=== PATIENT | female | born 1980 | race Caucasian/White ===

== ENCOUNTER 2016-09-24 17:04 | Inpatient (IN) ==
[2016-09-24] MEDS ORDERED: Ondansetron 4 MG/2 ML VIAL IVP PRN (20:43)
[2016-09-24] MEDS ORDERED: Acetaminophen 325 MG TABLET PO PRN (20:43)
[2016-09-24] MEDS ORDERED: Naloxone 0.4 MG/ML INJ IVP PRN (20:43)
[2016-09-24] MEDS: Ipratropium/Albuterol Neb 3 ML IH SCH (21:06)
--- NOTE | 2016-09-24 21:08 | Internal Med History&Physical ---
Date of Encounter: 09/24/16 Time of Encounter: 21:06 Assessment and Plan (1) Asthma exacerbation Current visit: Yes Status: Acute Patient has a history of asthma. She recently underwent sinus surgery one week ago. She has sudden onset cough with white mucus production, shortness of breath and wheezing without any fever or chills. Exam reveals patient in moderate to severe respiratory distress using accessory muscles of respiration and bilateral diffuse wheezing. Chest x-ray does not reveal any acute infiltrates. CT angiogram does not reveal an embolus. ABG reveals hypercapnia on 100% oxygen. Patient will be admitted to inpatient status due to asthma exacerbation. She has received breathing treatments and pulse dose steroids of 125 mg Solu- Medrol at [facility] emergency department. Will continue breathing treatments around the clock and high-dose steroids. We will continue her progress and taper steroids based on her response. She will be placed on BiPAP therapy to provide respite's support. If she does not respond to BiPAP therapy, she will require intubation and mechanical ventilation.The same has been discussed with the patient and family and they are agreeable to the same. Intravenous antibiotics. (2) Respiratory failure Current visit: Yes Status: Acute Due to asthma exacerbation. Management as above. BiPAP support and oxygen supplementation. Qualifiers: Chronicity: acute Respiratory failure complication: hypoxia and hypercapnia Qualified Code(s): J96.01 - Acute respiratory failure with hypoxia ; J96.02 - Acute respiratory failure with hypercapnia (3) Seizure disorder Current visit: Yes Status: Chronic Patient takes 200 mg of carbamazepine at bedtime. Continue the same. (4) Obesity (BMI 30-39.9) Current visit: No Status: Chronic Internal Medicine - H&P: HPI Chief complaint: Shortness of breath Admitted From: Hospital to Hospital Transfer Plans for Post Hospital Care: Home History of present illness: Ms. Thomas is a 35 year old female with a history of asthma presented to [facility] emergency department due to shortness of breath and cough that started last night. Patient states that she has a history of asthma but only uses albuterol very rarely. She does have a history of nasal polyps. She underwent surgery on her ethmoid, sphenoid and maxillary sinuses by ENT last week. She states that she has been doing fine over the past week. However, last night, she doubled sudden onset shortness of breath and cough productive of white colored sputum production. This was associated with wheezing. Her shortness of breath has been getting worse all through the day and the patient is current to short of breath. Hence, she presented to [facility] emergency department today. She was found to have asthma exacerbation and was given intravenous steroids and placed on BiPAP. The patient has been transferred for higher level of care and admission for her asthma exacerbation. The patient denies any fever or chills. She denies any nausea or vomiting, abdominal pain, diarrhea, sedation. She reports chest tightness and chest pain. She reports feeling lightheaded. She states that the cough is bothering her. She denies any urinary symptoms. She denies any swelling in her legs. She denies any recent weight changes. Past Med Surg Social Fam HX - Past Medical History Attestation: Yes The following information was validated with the patient. Source: patient, obtained from family Medical history: asthma, seizures, other Psychiatric history: no psych history - Past Surgical History Surgical History: other (Ethmoid, sphenoid and maxillary surgery with removal of the tissue from the sinuses) - Social History Smoking Status: Never smoker Smokeless Tobacco Status: No Alcohol use: none Drug use: none Current living situation: Home, With Family Activity Level: Independent ambulation Recent Out of Country Travel Within the Last 8 Weeks: No Exposure or Possible Exposure to Illness During Travel: No - Additional Family History Additional family history: Reviewed; not pertinent Internal Medicine - H&P: Meds Albuterol Sulfate [Ventolin Hfa] 2 puff IH Q4H PRN 09/18/16 [History] Amoxicillin Susp [Amoxil] 10 ml PO BID #200 bottle 09/18/16 [Rx] Cetirizine HCl [Zyrtec] 10 mg PO DAILY 09/18/16 [History] Fluticasone Propionate Nasal [Flonase] 2 spr NS DAILY PRN 09/18/16 [History] HYDROcodone/Acet 7.5/325 mg [[place] 7.5-325 mg] 1 tab PO Q4-6H PRN #40 tablet 09/29 [Rx] Montelukast [Singulair] 10 mg PO HS 09/18/16 [History] carBAMazepine [Tegretol] 200 mg PO HS 09/18/16 [History] Allergies No Known Allergies Allergy (Verified 09/24/16 13:44) All Systems PM: A 10-system review of systems was performed and is negative for pertinent findings except as documented above in the HPI. Review of systems: 10 systems have been reviewed and are negative except as mentioned in the history of present illness - Constitutional Vitals: Temp Pulse Resp BP Pulse Ox 98.4 F 107 24 145/98 100 09/24/16 20:20 09/24/16 20:20 09/24/16 20:20 09/24/16 20:20 09/24/16 20:20 Exam: Gen.: Lying in bed. Moderate to severe distress. Eyes: Pupils equal, round and reactive to light. Extraocular muscles intact. ENT: Moist mucous membranes. No oropharyngeal erythema or discharge. Crusted blood at bilateral nares Chest: Reduced breath sounds bilaterally. Diffuse wheezing. Using accessory muscles of respiration. CVS: First and second heart sounds present. No murmurs, rubs or gallops. Tachycardia present. Abdomen: Soft, nontender, obese. Bowel sounds present. No hepatosplenomegaly. Skin: No decubitus ulcers appreciated. MEDICAL RECORDS SECRETARY: No focal neuro deficits present. Psychiatric: Alert, awake and oriented to time, place and person. Lymphatic system: No lymphadenopathy appreciated Internal Med - H&P Results - Labs Labs: Labs from [facility] reviewed-white count 16,000. ABG reveals pH of 7.35, PCO2 52, PO2 107 on 100% BiPAP. Chemistry reveals mildly elevated glucose and mildly elevated creatinine kinase - EKG Data -: EKG Interpreted by Myself EKG shows normal: sinus rhythm, ST-T waves (ST depressions minimally and V4-6 ) Rate: tachycardia - Diagnostic Studies Chest x-ray Status: image reviewed by me (No acute infiltrates seen ) CT scan - chest Status: image reviewed by me (No acute PE or infiltrates seen)
[2016-09-24] MEDS ORDERED: CARBAMAZEPINE 100 MG PO SCH (21:15)
[2016-09-24] MEDS: Levofloxacin 750 MG/150 ML 750 MG/150 ML BAG IVPB SCH (21:51)
[2016-09-24] MEDS: *HR* Heparin 5,000 UNIT/ML VIAL SQ SCH (21:51)
[2016-09-25] MEDS: methylPREDNISolone 125 MG/2 ML VIAL IVP SCH ×4 (00:01→17:43)
[2016-09-25] MEDS: Ipratropium/Albuterol Neb 3 ML IH SCH ×7 (00:27→23:30)
[2016-09-25 05:04] LABS: Basophils % 0.1 %; Hematocrit 33.7 % (35.3-44.9); Immature Granulocytes % 0.6 % (0-4); Lymphocytes # 0.9 K/mcL (0.6-4.6); Lymphocytes % 8.1 %; Mean Corpuscular HGB Conc 32.6 g/dL (31.6-35.5); Mean Corpuscular Hemoglobin 29.7 pg (28.0-33.3); Mean Corpuscular Volume 91.1 fL (83.0-100.0); Mean Platelet Volume 9.7 fL (9.4-12.4); Monocytes # 0.2 K/mcL (0.0-1.3); Monocytes % 1.6 %; Neutrophils # 10.1 K/mcL (1.6-8.9); Platelet Count 348 K/mcL (140-400); Red Cell Distribution Width 15.8 % (11.5-14.5); Segmented Neutrophils % 89.6 %
[2016-09-25] MEDS: *HR* Heparin 5,000 UNIT/ML VIAL SQ SCH ×3 (05:08→21:41)
[2016-09-25 05:21] LABS: Alanine Aminotransferase 20 Units/L (0-55); Albumin 3.7 g/dL (3.5-5.0); Albumin/Globulin Ratio 0.9 (1.1-2.2); Alkaline Phosphatase 162 Units/L (38-126); Aspartate Amino Transferase 17 Units/L (5-34); BUN/Creatinine Ratio 13 (6-26); Bilirubin,Total 0.4 mg/dL (0.2-1.2); Blood Urea Nitrogen 10 mg/dL (7-20); Calcium 9.3 mg/dL (8.6-10.8); Carbon Dioxide 30 mEq/L (19-29); Chloride 106 mEq/L (98-109); Globulin 4.1 g/dL (2.4-3.5); Glucose 138 mg/dL (70-99); Osmolality,Calculated 295 (280-300); Potassium 3.8 mEq/L (3.5-4.5); Sodium 142 mEq/L (136-145); Total Protein 7.8 g/dL (6.0-8.3); eGFR For African Americans > 60 (> 60); eGFR For Non-African Americans > 60 (> 60)
--- NOTE | 2016-09-25 09:13 | Internal Med Progress Note ---
<Mikey Jimenez - Last Filed: 09/25/16 15:23> Date of Encounter: 09/25/16 Time of Encounter: 09:13 - Assessment and plan (1) Asthma exacerbation Current Visit: Yes Status: Acute Assessment and plan: ABG showed respiratory acidosis with elevated PCO2 and slightly elevated bicarbonate level, patient was put on BiPAP last night and this morning, patient 's shortness of breath has improved, continue DuoNeb around the clock, IV antibiotics, IV steroids and oxygen support. CTA of the chest was negative for PE. (2) MRSA (methicillin resistant staph aureus) culture positive Current Visit: Yes Status: Acute Assessment and plan: Right frontal sinus culture came back MRSA positive from nasal polyp surgery a week ago, since patient presented to the ER with acute exacerbation of asthma, will cover MRSA infection with vancomycin IV. (3) Hx of nasal polyp Current Visit: Yes Status: Acute Assessment and plan: Patient had a removal nasal polyp surgery a week ago by ENT doctor. Patient was having postnasal drip after the surgery. (4) Seizure disorder Current Visit: Yes Status: Chronic Assessment and plan: History of seizures, last one was more than 20 years ago, continue Tegretol. (5) Obesity (BMI 30-39.9) Current Visit: No Status: Chronic Assessment and plan: Diet and lifestyle modification. (6) DVT prophylaxis Current Visit: Yes Status: Acute Assessment and plan: Heparin subcutaneous 3 times a day. He - Subjective Interval history: Patient seen and examined. She states that shortness of breath is better than last night, pt used bipap all night last night and this AM, still has productive cough with white phlegm. Denies chest pain. - Constitutional Vitals: Temp Pulse Resp BP Pulse Ox 98.4 F 88 16 104/68 100 09/25/16 06:47 09/25/16 06:47 09/25/16 08:45 09/25/16 08:45 09/25/16 08:45 General appearance: Present: cooperative, A&O X 3, pleasant, no acute distress, answers questions appropriately - Respiratory Respiratory exam: Present: decreased breath sounds (Diffusedly bilateral), wheezes (Slightly at base bilateral ). Absent: rales, rhonchi - Cardiovascular Cardiovascular exam: Present: RRR, +S1, +S2. Absent: clicks, gallop, rubs, systolic murmur - GI/Abdominal GI/Abdominal exam: Present: normal bowel sounds, soft. Absent: distended, firm , guarding, rebound, rigid, tenderness - Extremities Exam Extremities exam: Present: warm, radial pulses palpable and symetrical. Absent : calf tenderness, pedal edema, tenderness - Neurological Exam Neurological exam: Present: alert, CN II-XII intact, oriented X3, strengths equal and symetr throughout. Absent: altered Internal Medicine: Result - Labs CBC & Chem 7: 09/25/16 04:30 09/25/16 04:30 Labs: Short CBC 09/25/16 Range/Units 04:30 WBC 11.3 H (4.3-11.1) K/mcL Hgb 11.0 L (11.5-15.4) g/dL Hct 33.7 L (35.3-44.9) % Plt Count 348 (140-400) K/mcL Neutrophils # 10.1 H (1.6-8.9) K/mcL BMP 09/25/16 04:30 Sodium 142 Potassium 3.8 Chloride 106 Carbon Dioxide 30 H BUN 10 Creatinine 0.76 Glucose 138 H Calcium 9.3 Cardiac Enzymes 09/24/16 09/25/16 Range/Units 21:31 04:30 Troponin I 0.02 0.01 (0-0.03) ng/mL Liver Function 09/25/16 Range/Units 04:30 Total Bilirubin 0.4 (0.2-1.2) mg/dL AST 17 (5-34) Units/L ALT 20 (0-55) Units/L Alkaline Phosphatase 162 H (38-126) Units/L Albumin 3.7 (3.5-5.0) g/dL Consult Discharge Plan - Plan Referrals: NO,PCP [Primary Care Provider] - <Rohit Oscar - Last Filed: 09/25/16 16:26> Date of Encounter: 09/25/16 - Assessment and plan (1) Respiratory failure Current Visit: Yes Status: Acute Qualifiers: Chronicity: acute Respiratory failure complication: hypoxia Qualified Code(s): J96.01 - Acute respiratory failure with hypoxia (2) Asthma exacerbation Current Visit: Yes Status: Acute (3) Acute bronchitis Current Visit: Yes Status: Suspected Qualifiers: Bronchitis organism: Haemophilus influenzae Qualified Code(s): J20.1 - Acute bronchitis due to Hemophilus influenzae (4) MRSA (methicillin resistant staph aureus) culture positive Current Visit: Yes Status: Acute (5) Seizure disorder Current Visit: Yes Status: Chronic (6) Obesity (BMI 30-39.9) Current Visit: No Status: Chronic - Constitutional Vitals: Temp Pulse Resp BP Pulse Ox 98.4 F 78 22 118/81 94 09/25/16 11:16 09/25/16 14:12 09/25/16 14:26 09/25/16 14:12 09/25/16 14:26 Internal Medicine: Result - Labs CBC & Chem 7: 09/25/16 04:30 09/25/16 04:30 Labs: Short CBC 09/25/16 Range/Units 04:30 WBC 11.3 H (4.3-11.1) K/mcL Hgb 11.0 L (11.5-15.4) g/dL Hct 33.7 L (35.3-44.9) % Plt Count 348 (140-400) K/mcL Neutrophils # 10.1 H (1.6-8.9) K/mcL BMP 09/25/16 04:30 Sodium 142 Potassium 3.8 Chloride 106 Carbon Dioxide 30 H BUN 10 Creatinine 0.76 Glucose 138 H Calcium 9.3 Cardiac Enzymes 09/24/16 09/25/16 Range/Units 21:31 04:30 Troponin I 0.02 0.01 (0-0.03) ng/mL Liver Function 09/25/16 Range/Units 04:30 Total Bilirubin 0.4 (0.2-1.2) mg/dL AST 17 (5-34) Units/L ALT 20 (0-55) Units/L Alkaline Phosphatase 162 H (38-126) Units/L Albumin 3.7 (3.5-5.0) g/dL - Attending Attestation I examined this patient and my medical decision-making was reviewed with the Resident Physician on 09/25/16. I agree with the documented findings, disposition and treatment plan as described except to the extent set forth below. Ms. Thomas is currently admitted for acute exac asthma with hypoxia. She is high risk due to potential for worsening respiratory status. Ms. Thomas was on bipap most of the night. She is still on oxygen and has some hypoxia when removed. She feels she is wheezing less. No fever. No GI issues. Parents are at bedside. Exam Alert. Comfortable Heart reg - not tachy now Lungs clear anteriorly and laterally. No edema I/P 1. Hypoxia 2. Asthma 3. MRSA in sinus 4. Recent sinus surgery Further diagnoses and plan as above
[2016-09-25] MEDS ORDERED: Vancomycin (wt based) 1,000 MG VIAL IVPB SCH (12:00)
[2016-09-25] MEDS: Vancomycin 1,500 MG in D5% in Water 250 ML IVPB SCH (13:59)
[2016-09-25] MEDS: CARBAMAZEPINE 100 MG PO SCH (21:38)
[2016-09-25] MEDS: Levofloxacin 750 MG/150 ML 750 MG/150 ML BAG IVPB SCH (21:40)
[2016-09-26] MEDS: methylPREDNISolone 125 MG/2 ML VIAL IVP SCH ×2 (01:24→07:00)
[2016-09-26] MEDS: Vancomycin 1,500 MG in D5% in Water 250 ML IVPB SCH ×2 (01:25→12:42)
[2016-09-26] MEDS: Ipratropium/Albuterol Neb 3 ML IH SCH ×6 (04:25→23:59)
[2016-09-26 04:54] LABS: Basophils % 0.1 %; Hemoglobin 10.2 g/dL (11.5-15.4); Immature Granulocytes % 0.8 % (0-4); Lymphocytes # 0.9 K/mcL (0.6-4.6); Lymphocytes % 12.5 %; Mean Corpuscular HGB Conc 31.9 g/dL (31.6-35.5); Mean Corpuscular Hemoglobin 28.7 pg (28.0-33.3); Mean Corpuscular Volume 89.9 fL (83.0-100.0); Mean Platelet Volume 9.8 fL (9.4-12.4); Monocytes # 0.4 K/mcL (0.0-1.3); Monocytes % 5.1 %; Platelet Count 322 K/mcL (140-400); Red Blood Count 3.56 M/mcL (3.82-4.97); Red Cell Distribution Width 15.4 % (11.5-14.5); Segmented Neutrophils % 81.5 %
[2016-09-26] MEDS: *HR* Heparin 5,000 UNIT/ML VIAL SQ SCH ×3 (07:00→22:29)
--- NOTE | 2016-09-26 10:07 | Internal Med Progress Note ---
<Mikey Jimenez - Last Filed: 09/26/16 10:04> Date of Encounter: 09/26/16 Time of Encounter: 10:04 - Assessment and plan (1) Asthma exacerbation Current Visit: Yes Status: Acute Assessment and plan: Clinically patient's breathing improved compared to yesterday, ABG showed respiratory acidosis with elevated PCO2 and slightly elevated bicarbonate level , patient is currently on 3 L oxygen mask satting 96 to 98%, will decrease IV steroid dosage, continue DuoNeb around the clock, IV antibiotics, and oxygen support. Patient will have 6 minutes home oxygen qualification test today. CTA of the chest was negative for PE. (2) MRSA (methicillin resistant staph aureus) culture positive Current Visit: Yes Status: Acute Assessment and plan: Right frontal sinus culture came back MRSA positive from nasal polyp surgery a week ago, since patient presented to the ER with acute exacerbation of asthma, will cover MRSA infection with vancomycin IV. (3) Hx of nasal polyp Current Visit: Yes Status: Acute Assessment and plan: Patient had a removal nasal polyp surgery a week ago by ENT doctor. Patient was having postnasal drip after the surgery. Patient has a scheduled follow-up appointment tomorrow. (4) Seizure disorder Current Visit: Yes Status: Chronic Assessment and plan: History of seizures, last one was more than 20 years ago, continue Tegretol. (5) Obesity (BMI 30-39.9) Current Visit: No Status: Chronic Assessment and plan: Diet and lifestyle modification. (6) DVT prophylaxis Current Visit: Yes Status: Acute Assessment and plan: Heparin subcutaneous 3 times a day. - Subjective Interval history: Patient seen and examined. She states that shortness of breath is better than yesterday, productive cough is minimum, she states that her breathing is almost back to her baseline. - Constitutional Vitals: Temp Pulse Resp BP Pulse Ox 97.6 F 78 16 119/54 98 09/26/16 06:44 09/26/16 06:44 09/26/16 07:21 09/26/16 06:44 09/26/16 09:00 General appearance: Present: cooperative, A&O X 3, pleasant, no acute distress, answers questions appropriately - Respiratory Respiratory exam: Present: wheezes (Slightly diffusely bilateral). Absent: accessory muscle use, chest wall tenderness, rales, rhonchi - Cardiovascular Cardiovascular exam: Present: RRR, +S1, +S2. Absent: clicks, gallop, rubs, systolic murmur - GI/Abdominal GI/Abdominal exam: Present: normal bowel sounds, soft. Absent: distended, firm , guarding, rebound, rigid, tenderness - Extremities Exam Extremities exam: Present: normal inspection, warm, radial pulses palpable and symetrical. Absent: calf tenderness, pedal edema, tenderness Internal Medicine: Result - Labs CBC & Chem 7: 09/26/16 04:19 09/25/16 04:30 Labs: Short CBC 09/26/16 Range/Units 04:19 WBC 7.4 (4.3-11.1) K/mcL Hgb 10.2 L (11.5-15.4) g/dL Hct 32.0 L (35.3-44.9) % Plt Count 322 (140-400) K/mcL Neutrophils # 6.0 (1.6-8.9) K/mcL Consult Discharge Plan - Plan Referrals: NO,PCP [Primary Care Provider] - <Rohit Oscar - Last Filed: 09/26/16 13:30> Date of Encounter: 09/26/16 - Assessment and plan (1) Respiratory failure Current Visit: Yes Status: Acute Assessment and plan: Weaning oxygen as able. Qualifiers: Chronicity: acute Respiratory failure complication: hypoxia Qualified Code(s): J96.01 - Acute respiratory failure with hypoxia (2) Asthma exacerbation Current Visit: Yes Status: Acute (3) Acute bronchitis Current Visit: Yes Status: Suspected Assessment and plan: Sinus surgery culture positive for H flu and MRSA. On IV abx. Qualifiers: Bronchitis organism: Haemophilus influenzae Qualified Code(s): J20.1 - Acute bronchitis due to Hemophilus influenzae (4) MRSA (methicillin resistant staph aureus) culture positive Current Visit: Yes Status: Acute (5) Seizure disorder Current Visit: Yes Status: Chronic (6) Obesity (BMI 30-39.9) Current Visit: No Status: Chronic - Constitutional Vitals: Temp Pulse Resp BP Pulse Ox 98.4 F 90 18 125/71 96 09/26/16 11:28 09/26/16 11:28 09/26/16 11:28 09/26/16 11:28 09/26/16 11:28 Internal Medicine: Result - Labs CBC & Chem 7: 09/26/16 04:19 09/25/16 04:30 Labs: Short CBC 09/26/16 Range/Units 04:19 WBC 7.4 (4.3-11.1) K/mcL Hgb 10.2 L (11.5-15.4) g/dL Hct 32.0 L (35.3-44.9) % Plt Count 322 (140-400) K/mcL Neutrophils # 6.0 (1.6-8.9) K/mcL - Attending Attestation I examined this patient and my medical decision-making was reviewed with the Resident Physician on 09/26/16. I agree with the documented findings, disposition and treatment plan as described except to the extent set forth below. Ms. Thomas is currently admitted for hypoxia and asthma exacerbation. She remains high risk due to potential for worsening respiratory status. Ms. Thomas feels she is breathing better today. She is still on oxygen but is tapering down some. No pain. No issues with nose. Concerned about her follow up appt tomorrow. No fever or chills now. Has not required bipap again. Exam Alert. Comfortable. Heart reg - not tachy Lungs diminished. No wheeze at this time. Abd soft and nontender. Labs reviewed I/P 1. Hypoxia 2. Asthma exacerbation. Further diagnoses and plan as above. Continue current abx. Wean oxygen and steroids. Anticipate d/c tomorrow AM in time for ENT appt.
[2016-09-26] MEDS ORDERED: Aminoglycoside Consult 1 EACH MC ONE (10:44)
[2016-09-26] MEDS: MethylPREDNISolone 40 MG/ML VIAL IVP SCH ×2 (12:43→22:29)
[2016-09-26] MEDS: CARBAMAZEPINE 100 MG PO SCH (22:29)
[2016-09-26] MEDS: Levofloxacin 750 MG/150 ML 750 MG/150 ML BAG IVPB SCH (22:29)
[2016-09-27] MEDS: Vancomycin 1,500 MG in D5% in Water 250 ML IVPB SCH (01:00)
[2016-09-27] MEDS: Ipratropium/Albuterol Neb 3 ML IH SCH ×4 (03:53→07:48)
[2016-09-27] MEDS: MethylPREDNISolone 40 MG/ML VIAL IVP SCH (04:47)
[2016-09-27] MEDS: *HR* Heparin 5,000 UNIT/ML VIAL SQ SCH (04:47)
[2016-09-27 06:48] VITALS: BP 113/68
--- NOTE | 2016-09-27 09:38 | Discharge Summary ---
<Mikey Jimenez - Last Filed: 09/27/16 11:57> Date of Encounter: 09/27/16 Time of Encounter: 09:33 - Discharge Diagnosis (1) Asthma exacerbation Priority: Primary Status: Acute (2) MRSA (methicillin resistant staph aureus) culture positive Priority: Secondary Status: Acute (3) Hx of nasal polyp Priority: Secondary Status: Acute (4) Seizure disorder Priority: Secondary Status: Chronic (5) Obesity (BMI 30-39.9) Priority: Secondary Status: Chronic (6) DVT prophylaxis Priority: Secondary Status: Acute - Discharge Medications Prescriptions: Doxycycline 100 mg PO BID 4 Days predniSONE [PredniSONE] 10 mg PO DAILY #40 tablet Home Medications: Albuterol Sulfate [Ventolin Hfa] 2 puff IH Q4H PRN 09/18/16 [History] Cetirizine HCl [Zyrtec] 10 mg PO DAILY 09/18/16 [History] Fluticasone Propionate Nasal [Flonase] 2 spr NS DAILY PRN 09/18/16 [History] HYDROcodone/Acet 7.5/325 mg [[place] 7.5-325 mg] 1 tab PO Q4-6H PRN #40 tablet 09/29 [Rx] Montelukast [Singulair] 10 mg PO HS 09/18/16 [History] carBAMazepine [CarBAMazepine] 200 mg PO HS 09/24/16 [History] Doxycycline 100 mg PO BID 4 Days 09/27/16 [Rx] predniSONE [PredniSONE] 10 mg PO DAILY #40 tablet 09/27/16 [Rx] Allergies/Adverse Reactions: Allergies No Known Allergies Allergy (Verified 09/24/16 13:44) Procedures/tests Complete & Pending: Procedures Performed prior 72 hours Category Date Time Status EV echocardiogram Routine Y 09/25/16 21:24 Completed Date of admission: 09/24/16 22:40 Primary care physician: PCP NO Discharging clinician: Mikey Jimenez Anticipated date of discharge: 09/27/16 - Patient Status Disposition: Home, Self-Care Condition: Good Functional capacity at discharge: uses cane/walker (fall precaution) Overall status at discharge: patient is progressing back to baseline - Discharge Instructions Instructions: Doxycycline (By mouth), Prednisone (By mouth), Asthma (DC) Follow Up With: Alison Cruz, TEAM COORDINATOR [Advanced Practice Nurse] - 10/08/16 12:00 pm - Diet and Activity Activity: resume usual activities as tolerated Diet: low fat, low cholesterol Hospital course: Ms. Thomas is a 35 year old female with a history of asthma who presented to the ER due to shortness of breath and productive cough, patient was admitted to the hospital for acute exacerbation of asthma, she has a history of nasal polyps and she has a nasal polyp surgery week ago and its culture came back positive for MRSA. During this hospital stay patient received IV steroid, IV antibiotics of Levaquin and vancomycin, DuoNeb [id number] and oxygen support, initially she was put on BiPAP for respiratory acidosis, CTA of the chest was negative for pulmonary embolism, patient's respiratory status significantly improved and on the date of the discharge patient is breathing went back to her baseline, and patient has a follow-up appointment today with ENT doctor therefore patient will be discharged to home in stable condition with by mouth steroid taper, antibiotic of doxycycline to treat MRSA infection, and patient will closely follow up with her primary care doctor as outpatient. - Time Spent with Patient Total time spent providing and/or coordinating discharge services: - Constitutional Vitals: Temp Pulse Resp BP Pulse Ox 97.9 F 69 16 113/68 96 09/27/16 06:37 09/27/16 06:37 09/27/16 07:48 09/27/16 06:37 09/27/16 07:48 General appearance: Present: cooperative, A&O X 3, pleasant, no acute distress, answers questions appropriately - Head Head exam: Present: atraumatic, normocephalic - Eye Eye exam: Present: PERRL, conjuntiva pink, sclera anicteric Pupils: Present: PERRL - Neck Neck exam general surgery: Present: supple, trachea midline. Absent: lymphadenopathy - Respiratory Respiratory exam: Present: decreased breath sounds (Mildly Diffusely bilateral) . Absent: accessory muscle use, rales, rhonchi, wheezes - Cardiovascular Cardiovascular exam: Present: RRR, +S1, +S2. Absent: diastolic murmur, gallop, rubs, systolic murmur - GI/Abdominal GI/Abdominal exam: Present: normal bowel sounds, soft, no peritoneal signs. Absent: distended, tenderness - Extremities Exam Extremities exam: Present: warm, radial pulses palpable and symetrical. Absent : calf tenderness, cyanotic, pedal edema - Neurological Exam Neurological exam: Present: CN II-XII intact, oriented X3, no focal deficits. Absent: pronater drift, facial droop, speech deficit - Skin Skin exam: Present: dry, intact <Marc Pinon - Last Filed: 09/27/16 18:14> Date of Encounter: 09/27/16 Procedures/tests Complete & Pending: Procedures Performed prior 72 hours Category Date Time Status EV echocardiogram Routine Y 09/25/16 21:24 Completed Date of admission: 09/24/16 22:40 Primary care physician: PCP NO Hospital course: Ms. Thomas is a 35 year old female - Time Spent with Patient Total time spent providing and/or coordinating discharge services: - Constitutional Vitals: Temp Pulse Resp BP Pulse Ox 97.9 F 69 16 113/68 96 09/27/16 06:37 09/27/16 06:37 09/27/16 07:48 09/27/16 06:37 09/27/16 07:48 - Attending Attestation I saw and examined pt. I discussed the management plan with resident Dr Jensen, Agree with the document.
== END 2016-09-27 10:45 | disposition home or self-care (01) | DRG 141 ==
LOC: 2NENU → SUATTDRO 22:40
PROVIDERS: ADMIT Internal Medicine Sleep Medicine; ATTEND Internal Medicine

== ENCOUNTER 2016-12-25 10:07 | Inpatient (IN) ==
[2016-12-25] MEDS ORDERED: Ipratropium/Albuterol Neb 3 ML ONE (10:23)
[2016-12-25] MEDS ORDERED: methylPREDNISolone 125 MG/2 ML VIAL IVP ONE (10:24)
[2016-12-25] MEDS ORDERED: Ipratropium/Albuterol Neb 3 ML IH ONE (10:24)
[2016-12-25] MEDS ORDERED: 0.9 % Sodium Chloride 500 ML IVC ONE (10:26)
--- NOTE | 2016-12-25 10:30 | Emergency Department Note ---
Disposition Clinical Impression: Respiratory distress, Hypoxia Asthma with exacerbation Qualifiers: Asthma severity: unspecified severity Qualified Code(s): J45.901 - Unspecified asthma with (acute) exacerbation Disposition: Admitted As Inpatient SOB HPI - General Chief Complaint: ED Shortness of Breath/Dyspnea Stated Complaint: SANJIV Source: patient, EMS Mode of arrival: EMS Limitations: no limitations Nursing Notes Reviewed: Yes Vital Signs Reviewed: Yes - History of Present Illness Patient is a 36-year-old white female with a history of asthma who presents to the emergency department by EMS in respiratory distress. Patient arrived with room air sats at 82% with increased work of breathing and audible wheezing and tachypnea. Patient's despite shortness of breath has good mental status and able to answer questions appropriately although with conversational dyspnea. Patient's tachycardic sinus as well. Patient reports that she has had gradually worsening shortness of breath over the past 36 hours which began as as mild cold symptoms nasal congestion occasional nonproductive cough and then woke up this morning feeling very short of breath. Patient with increased work of breathing and wheezing. Patient complains of chest tightness throughout her anterior chest. She has had no production of cough and no posttussive emesis. No known ill contacts. 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 Patient with is between extra wheezing throughout bilaterally with good air movement, no facial swelling or edema, posterior pharynx without erythema exudates or edema with a midline uvula. Floor the mouth appears unremarkable and she is managing secretions well. We will initiate triple breathing treatments and IV steroids and closely monitored. - Related Data Home Medications Medication Instructions Recorded Confirmed Albuterol Sulfate [Ventolin Hfa] 2 puff IH Q4H PRN 09/18/16 12/25/16 Cetirizine HCl [Zyrtec] 10 mg PO DAILY 09/18/16 12/25/16 Fluticasone Propionate Nasal 2 spr NS DAILY PRN 09/18/16 12/25/16 [Flonase] Montelukast [Singulair] 10 mg PO HS 09/18/16 12/25/16 carBAMazepine [CarBAMazepine] 200 mg PO HS 09/24/16 12/25/16 Budesonide Neb [Pulmicort Neb] 0.5 mg PO Q6H PRN 12/25/16 12/25/16 Allergies Allergy/AdvReac Type Severity Reaction Status Date / Time No Known Allergies Allergy Verified 12/25/16 10:24 Constitutional: Denies: fever, chills ENT ED: Reports: congestion. Denies: ear pain, throat pain, dental pain, hearing loss, dysphagia Cardiovascular: Reports: chest pain. Denies: palpitations, dyspnea on exertion , orthopnea, edema, syncope, paroxysmal nocturnal dyspnea Respiratory: Reports: cough, dyspnea, wheezes. Denies: hemoptysis, stridor, sputum production Gastrointestinal: Denies: abdominal pain, nausea, vomiting Genitourinary: Denies: urgency, dysuria, frequency Musculoskeletal: Denies: back pain, neck pain Integumentary: Denies: rash Psychiatric: Denies: anxiety, depression Past Medical History - Past Medical History Medical history: Reports: asthma, seizures, other Surgical history: Reports: other (Ethmoid, sphenoid and maxillary surgery with removal of the tissue from the sinuses) Psychiatric history: Reports: no psych history CHOPPER FEEDER history: Reports: no CHOPPER FEEDER history - Social History Smoking Status: Never smoker Smokeless Tobacco Status: No Alcohol use: Reports: none Drug use: Reports: none Physical Exam - General Limitations: no limitations General appearance: alert, in no apparent distress, in distress, other (Patient found sitting on the edge of the cot on arrival to the ED with increased work of breathing, tachypnea, audible wheezing at bedside and hypoxic on arrival. He should with conversational dyspnea upon answering questions.) - Head Head exam: atraumatic, normocephalic, normal inspection - Eye Eye exam: Present: normal appearance, PERRL, EOMI - ENT ENT exam: normal exam, normal oropharynx, mucous membranes moist, TM's normal bilaterally, other (No pharyngeal erythema or exudates are noted uvula midline, no stridor, floor the mouth unremarkable with good dentition) - Neck Neck exam: Present: normal inspection, full ROM, trachea midline. Absent: lymphadenopathy - Chest Chest inspection: Present: normal inspection, symmetric chest wall rise. Absent : tenderness - Respiratory Respiratory exam: Present: respiratory distress, wheezes, accessory muscle use - Cardiovascular Cardiovascular exam: Present: normal rhythm, tachycardia, normal heart sounds - Abdominal Exam Abdominal exam: Present: soft, Non-Tender, normal bowel sounds - Extremities Exam Extremities exam: Present: normal inspection, full ROM. Absent: tenderness, pedal edema, calf tenderness - Back Exam Back exam: Present: normal inspection, full ROM. Absent: tenderness, CVA tenderness (R), CVA tenderness (L) - Neurological Exam Neurological exam: Present: alert, oriented X3, CN II-XII intact, reflexes normal. Absent: motor sensory deficit - Psychiatric Psychiatric exam: Present: normal affect, anxious - Skin Skin exam: Present: warm, dry, intact, normal color. Absent: diaphoresis, pallor Course Course Narrative: Upon arrival patient had an IV saline lock administered with steroids given IV, and triple DuoNeb initiated. Supplemental oxygen was turned up to 6 L nasal cannula on patient's arrival and will be titrated as appropriate. We will continue to monitor patient closely as she arrived in respiratory distress with hypoxia. - Reevaluation(s) Reevaluation #1: Patient with moderate improvement following aerosols and steroids. We were able to titrate nasal cannula oxygen down to 3 L/m. Patient's heart rate improving with IV fluids. Concerned with patient's initial presentation of tachycardia as well as her respiratory distress so we will proceed with CTA to rule out PE, as chest x-ray is unremarkable. Patient remains with hemodynamic improvement and respiratory improvement at this time. Reevaluation #2: Spoke with patient and now parents are at bedside in regards to lab and imaging results. CTA is unremarkable for any PE and no consolidation or infiltrate. Patient's course appears consistent with an acute exacerbation of asthma. Patient remains with diffuse wheezing throughout and still requiring supplement oxygen to maintain her O2 sats although remains at 3 L/m nasal cannula at this time. We will admit the patient for ongoing aerosols and pulmonary management. We will not initiate antibiotics at this time as patient's imaging has been unremarkable for any pulmonary infections. Patient's heart rate significantly improved and is actually in a normal sinus rhythm at this time. Vital signs stable. Vital Signs Temperature 99.1 F 12/25/16 10:09 Pulse Rate 127 12/25/16 10:09 Respiratory Rate 28 12/25/16 10:09 Blood Pressure 130/94 12/25/16 10:09 O2 Sat by Pulse Oximetry 82 12/25/16 10:09 Temperature 99.1 F 12/25/16 15:38 Pulse Rate 102 12/25/16 16:00 Respiratory Rate 20 12/25/16 16:47 Blood Pressure 108/75 12/25/16 15:38 O2 Sat by Pulse Oximetry 89 12/25/16 16:47 Oxygen Delivery Oxygen Delivery Nasal Cannula Shortness of Breath/Dyspnea - Medical Records Medical records reviewed: Yes I reviewed the patient's medical records. - Lab Data Lab results reviewed: Yes I reviewed the patient's lab results. Result diagrams: 12/25/16 10:35 12/25/16 10:35 Lab Results 12/25/16 12/25/16 12/25/16 Range/Units 10:25 10:25 10:35 WBC 15.8 H D (4.3-11.1) K/mcL RBC 4.62 (3.82-4.97) M/mcL Hgb 12.2 (11.5-15.4) g/dL Hct 39.4 (35.3-44.9) % MCV 85.3 (83.0-100.0) fL MCH 26.4 L (28.0-33.3) pg MCHC 31.0 L (31.6-35.5) g/dL RDW 15.0 H (11.5-14.5) % Plt Count 385 (140-400) K/mcL MPV 9.5 (9.4-12.4) fL Immature Gran % 0.7 (0-4) % Seg Neutrophils % 87.8 % Lymphocytes % 7.6 % Monocytes % 3.7 % Eosinophils % 0.0 % Basophils % 0.2 % Neutrophils # 13.9 H (1.6-8.9) K/mcL Lymphocytes # 1.2 (0.6-4.6) K/mcL Monocytes # 0.6 (0.0-1.3) K/mcL Eosinophils # 0.0 (0.0-0.6) K/mcL Basophils # 0.0 (0.0-0.2) K/mcL Sodium (136-145) mEq/L Potassium (3.5-4.5) mEq/L Chloride (98-109) mEq/L Carbon Dioxide (19-29) mEq/L BUN (7-20) mg/dL Creatinine (0.57-1.11) mg/dL Est GFR ( Amer) (> 60) Est GFR (Non-Af Amer) (> 60) BUN/Creatinine Ratio (6-26) Glucose (70-99) mg/dL Calculated Osmolality (280-300) Lactic Acid (0.5-2.2) mmol/L Calcium (8.6-10.8) mg/dL Total Bilirubin (0.2-1.2) mg/dL Direct Bilirubin (0.0-0.5) mg/dL Indirect Bilirubin (0.0-1.2) mg/dL AST (5-34) Units/L ALT (0-55) Units/L Alkaline Phosphatase (38-126) Units/L Troponin I (0-0.03) ng/mL B-Natriuretic Peptide (0-100) pg/mL Serum Total Protein (6.0-8.3) g/dL Albumin (3.5-5.0) g/dL Globulin (2.4-3.5) g/dL Albumin/Globulin Ratio (1.1-2.2) Urine Color Yellow (Yellow) Urine Clarity Turbid A (Clear) Urine pH 5.0 (5.0-8.0) pH Units Ur Specific [place] > 1.030 H (1.010-1.025) Urine Protein Trace (Neg-Trace) mg/dL Urine Glucose (UA) Normal (Normal) mg/dL Urine Ketones Negative (Negative) mg/dL Urine Blood Small H (Negative) Urine Nitrite Negative (Negative) Urine Bilirubin Negative (Negative) Urine Urobilinogen Normal (Normal) mg/dL Ur Leukocyte Esterase Negative (Negative) Urine Microscopic RBC 5-15 H (0-3) per hpf Urine Microscopic WBC 0-3 (0-3) per hpf Ur Squamous Epith Cells Many H (None-Few) per lpf Urine Bacteria Few (None-Few) per hpf Hyaline Casts None Seen (None-Few) per lpf Ur Culture Indicated? NO (NO) Urine Test Negative (Negative) 12/25/16 12/25/16 12/25/16 Range/Units 10:35 10:35 10:35 WBC (4.3-11.1) K/mcL RBC (3.82-4.97) M/mcL Hgb (11.5-15.4) g/dL Hct (35.3-44.9) % MCV (83.0-100.0) fL MCH (28.0-33.3) pg MCHC (31.6-35.5) g/dL RDW (11.5-14.5) % Plt Count (140-400) K/mcL MPV (9.4-12.4) fL Immature Gran % (0-4) % Seg Neutrophils % % Lymphocytes % % Monocytes % % Eosinophils % % Basophils % % Neutrophils # (1.6-8.9) K/mcL Lymphocytes # (0.6-4.6) K/mcL Monocytes # (0.0-1.3) K/mcL Eosinophils # (0.0-0.6) K/mcL Basophils # (0.0-0.2) K/mcL Sodium 140 (136-145) mEq/L Potassium 4.2 (3.5-4.5) mEq/L Chloride 103 (98-109) mEq/L Carbon Dioxide 28 (19-29) mEq/L BUN 14 (7-20) mg/dL Creatinine 0.77 (0.57-1.11) mg/dL Est GFR ( Amer) > 60 (> 60) Est GFR (Non-Af Amer) > 60 (> 60) BUN/Creatinine Ratio 18 (6-26) Glucose 126 H (70-99) mg/dL Calculated Osmolality 292 (280-300) Lactic Acid 1.7 (0.5-2.2) mmol/L Calcium 9.4 (8.6-10.8) mg/dL Total Bilirubin 0.2 (0.2-1.2) mg/dL Direct Bilirubin 0.1 (0.0-0.5) mg/dL Indirect Bilirubin 0.1 (0.0-1.2) mg/dL AST 20 (5-34) Units/L ALT 20 (0-55) Units/L Alkaline Phosphatase 267 H (38-126) Units/L Troponin I 0.03 (0-0.03) ng/mL B-Natriuretic Peptide (0-100) pg/mL Serum Total Protein 8.8 H (6.0-8.3) g/dL Albumin 3.6 (3.5-5.0) g/dL Globulin 5.2 H (2.4-3.5) g/dL Albumin/Globulin Ratio 0.7 L (1.1-2.2) Urine Color (Yellow) Urine Clarity (Clear) Urine pH (5.0-8.0) pH Units Ur Specific [place] (1.010-1.025) Urine Protein (Neg-Trace) mg/dL Urine Glucose (UA) (Normal) mg/dL Urine Ketones (Negative) mg/dL Urine Blood (Negative) Urine Nitrite (Negative) Urine Bilirubin (Negative) Urine Urobilinogen (Normal) mg/dL Ur Leukocyte Esterase (Negative) Urine Microscopic RBC (0-3) per hpf Urine Microscopic WBC (0-3) per hpf Ur Squamous Epith Cells (None-Few) per lpf Urine Bacteria (None-Few) per hpf Hyaline Casts (None-Few) per lpf Ur Culture Indicated? (NO) Urine Test (Negative) 12/25/16 12/25/16 Range/Units 10:35 11:33 WBC (4.3-11.1) K/mcL RBC (3.82-4.97) M/mcL Hgb (11.5-15.4) g/dL Hct (35.3-44.9) % MCV (83.0-100.0) fL MCH (28.0-33.3) pg MCHC (31.6-35.5) g/dL RDW (11.5-14.5) % Plt Count (140-400) K/mcL MPV (9.4-12.4) fL Immature Gran % (0-4) % Seg Neutrophils % % Lymphocytes % % Monocytes % % Eosinophils % % Basophils % % Neutrophils # (1.6-8.9) K/mcL Lymphocytes # (0.6-4.6) K/mcL Monocytes # (0.0-1.3) K/mcL Eosinophils # (0.0-0.6) K/mcL Basophils # (0.0-0.2) K/mcL Sodium (136-145) mEq/L Potassium (3.5-4.5) mEq/L Chloride (98-109) mEq/L Carbon Dioxide (19-29) mEq/L BUN (7-20) mg/dL Creatinine (0.57-1.11) mg/dL Est GFR ( Amer) (> 60) Est GFR (Non-Af Amer) (> 60) BUN/Creatinine Ratio (6-26) Glucose (70-99) mg/dL Calculated Osmolality (280-300) Lactic Acid 3.1 H (0.5-2.2) mmol/L Calcium (8.6-10.8) mg/dL Total Bilirubin (0.2-1.2) mg/dL Direct Bilirubin (0.0-0.5) mg/dL Indirect Bilirubin (0.0-1.2) mg/dL AST (5-34) Units/L ALT (0-55) Units/L Alkaline Phosphatase (38-126) Units/L Troponin I (0-0.03) ng/mL B-Natriuretic Peptide < 10 (0-100) pg/mL Serum Total Protein (6.0-8.3) g/dL Albumin (3.5-5.0) g/dL Globulin (2.4-3.5) g/dL Albumin/Globulin Ratio (1.1-2.2) Urine Color (Yellow) Urine Clarity (Clear) Urine pH (5.0-8.0) pH Units Ur Specific [place] (1.010-1.025) Urine Protein (Neg-Trace) mg/dL Urine Glucose (UA) (Normal) mg/dL Urine Ketones (Negative) mg/dL Urine Blood (Negative) Urine Nitrite (Negative) Urine Bilirubin (Negative) Urine Urobilinogen (Normal) mg/dL Ur Leukocyte Esterase (Negative) Urine Microscopic RBC (0-3) per hpf Urine Microscopic WBC (0-3) per hpf Ur Squamous Epith Cells (None-Few) per lpf Urine Bacteria (None-Few) per hpf Hyaline Casts (None-Few) per lpf Ur Culture Indicated? (NO) Urine Test (Negative) - Radiology Data Radiology results reviewed: Yes I reviewed the patient's radiology results. Chest X-Ray 12/25/16 10:24 IMPRESSION: No acute process. D/ / David Morgan MD / David Morgan MD Interpreting Provider: David Morgan MD Chest CTA 12/25/16 11:06 IMPRESSION: No evidence of pulmonary embolism or acute pulmonary abnormality. D/ / David Morgan MD / David Morgan MD Interpreting Provider: David Morgan MD - EKG Data EKG attestation: Yes I reviewed and interpreted this EKG. EKG results narrative: Patient's EKG was interpreted by myself without the benefit of formal cardiology interpretation showing a sinus tachycardia at [address] or T wave change. This was compared to prior EKG and shows no significant changes from 09/24/2016. EKG shows normal: Reports: sinus rhythm Rate: Reports: tachycardia Rhythm: Reports: NSR Interpretation: Reports: nonspecific ST-T wave changes Critical Care Time Critical Care Time: Yes Total Critical Care Time: 60 Attestation: The high probability of a clinically significant, sudden or life threatening deterioration of the [resp] system(s) required my full and direct attention, intervention and personal management. The aggregate critical care time was [60] minutes. This time is in addition to time spent performing reported procedures but includes the following: [x] Data Review and interpretation [x] Patient assessment and monitoring of vital signs [x] Documentation [x] Medication orders and management S.B.A.R. - S.B.ARadhaRRadha Situation: Demographics Background: Presenting Complaint, Relevant PMH, Meds, & Allergies Assessment: Vital Signs, Course and respsone to treatment, Exam Concerns Recommendation: Recommendation based on pending studies, treatments, or consults S.B.A.RRadha Report Given to: Dr. Troy Rodríguez Repor Time: 13:29 Attestation Statement - Attestation Attestation: I persoanlly cared for this pt independently without assistance from the residents.
[2016-12-25 10:42] LABS: Bilirubin,Urine Negative (Negative); Blood,Urine Small (Negative); Clarity,Urine Turbid (Clear); Color,Urine Yellow (Yellow); Glucose,Urine (UA) Normal (Normal); Ketones,Urine Negative (Negative); Leukocyte Esterase,Urine Negative (Negative); Nitrite,Urine Negative (Negative); Protein,Urine Trace mg/dL (Neg-Trace); Specific Gravity,Urine > 1.030 (1.010-1.025); Urobilinogen,Urine Normal (Normal)
[2016-12-25 10:44] LABS: Bacteria,Urine Few per hpf (None-Few); Hyaline Casts,Urine None Seen per lpf (None-Few); Squamous Epithelial Cell,Urine Many per lpf (None-Few); WBC,Urine 0-3 per hpf (0-3)
[2016-12-25 10:48] LABS: Basophils % 0.2 %; Hematocrit 39.4 % (35.3-44.9); Hemoglobin 12.2 g/dL (11.5-15.4); Immature Granulocytes % 0.7 % (0-4); Lymphocytes # 1.2 K/mcL (0.6-4.6); Lymphocytes % 7.6 %; Mean Corpuscular Hemoglobin 26.4 pg (28.0-33.3); Mean Corpuscular Volume 85.3 fL (83.0-100.0); Mean Platelet Volume 9.5 fL (9.4-12.4); Monocytes # 0.6 K/mcL (0.0-1.3); Monocytes % 3.7 %; Neutrophils # 13.9 K/mcL (1.6-8.9); Platelet Count 385 K/mcL (140-400); Red Blood Count 4.62 M/mcL (3.82-4.97); Segmented Neutrophils % 87.8 %
[2016-12-25 11:02] LABS: Alanine Aminotransferase 20 Units/L (0-55); Albumin 3.6 g/dL (3.5-5.0); Albumin/Globulin Ratio 0.7 (1.1-2.2); Alkaline Phosphatase 267 Units/L (38-126); Aspartate Amino Transferase 20 Units/L (5-34); BUN/Creatinine Ratio 18 (6-26); Bilirubin,Direct 0.1 mg/dL (0.0-0.5); Bilirubin,Indirect 0.1 mg/dL (0.0-1.2); Bilirubin,Total 0.2 mg/dL (0.2-1.2); Blood Urea Nitrogen 14 mg/dL (7-20); Calcium 9.4 mg/dL (8.6-10.8); Carbon Dioxide 28 mEq/L (19-29); Chloride 103 mEq/L (98-109); Globulin 5.2 g/dL (2.4-3.5); Glucose 126 mg/dL (70-99); Osmolality,Calculated 292 (280-300); Potassium 4.2 mEq/L (3.5-4.5); Sodium 140 mEq/L (136-145); Total Protein 8.8 g/dL (6.0-8.3); eGFR For African Americans > 60 (> 60); eGFR For Non-African Americans > 60 (> 60)
[2016-12-25] MEDS ORDERED: Albuterol 2.5 MG/3 ML NEBULIZER IH PRN (14:50)
[2016-12-25] MEDS ORDERED: Fluticasone Propionate Nasal 50 MCG/SPRAY BOTTLE NS PRN (14:51)
[2016-12-25] MEDS ORDERED: Budesonide Neb 0.5 MG/2 ML IH PRN (14:51)
--- NOTE | 2016-12-25 14:58 | Internal Med History&Physical ---
Date of Encounter: 12/25/16 Time of Encounter: 14:20 Assessment and Plan (1) Asthma exacerbation Current visit: No Status: Acute Has hx MRSA and she is Septic due to acute bronchitis (sepsis present on admission) Day #1 Levaquin and Vanco IVF per protocol in ER Serial lactic acids and exam. Continue IVF, monitor. Await cx data (2) Acute hypoxemic respiratory failure Current visit: Yes Status: Acute due to #1. Supplem O2, minitor. If she tires, will need bipap but for now seems to be improved (3) Obesity (BMI 30-39.9) Current visit: No Status: Chronic (4) Seizure disorder Current visit: No Status: Chronic continue home meds Internal Medicine - H&P: HPI Admitted From: Emergency Dept Plans for Post Hospital Care: Home History of present illness: 36 yo female with a hx of asthma usually under good control with periodic use of albuterol. She had sinus surgery in Apr 2016 for polyps. Was doing well when yesterday she developed severe cough, prod of yellow sputum and wheezing. No F/C. She then dev ant chest and back pain due to heavy hard coughing, prod of yellow, often thick sputum. She was admitted September 2016 for similar sx of asthma exacerbation, with sputum pos MRSA. She was tx with Levaquin and Vanco at that time, dc home on doxycycline. Pt is a nonsmoker, and has no occupational exposures. No N/V/D. She has 3 dogs at home, none new. No new exposures. She presented to [facility] ER hypsoxmic with wheezing and increased wob. LAbs showed a WBC of 15, Lactic elevaetd at 3.3. CT thorax was negative for acute process. She was given IVF, blood cx performed, nebs and IV solumedrol. Admitted for acute asthma exacerbtion. 1700: Sepsis follow up. Reports less SOB but still with pursed lip breathing. Lactic acid 1.8. Tachycardic but vitals stable otherwise. IVF hep locked and I do have concern for mild Vol overload. Will heplock IVF, Lasix 20 mg IV x1 and check echo in am. Cap refill <2.5 sec. Lungs with crackles at bases bilaterally. Past Med Surg Social Fam HX - Past Medical History Medical history: asthma, seizures, other Psychiatric history: no psych history - Past Surgical History Surgical History: other (Ethmoid, sphenoid and maxillary surgery with removal of the tissue from the sinuses) - Social History Smoking Status: Never smoker Smokeless Tobacco Status: No Alcohol use: none Drug use: none Occupational status: unemployed Current living situation: Home - Independent Activity Level: Independent ambulation Recent Out of Country Travel Within the Last 8 Weeks: No Exposure or Possible Exposure to Illness During Travel: No - Additional Family History Additional family history: hx reviewed and noncontrib. No Fam hx asthma Internal Medicine - H&P: Meds Albuterol Sulfate [Ventolin Hfa] 2 puff IH Q4H PRN 09/18/16 [History] Cetirizine HCl [Zyrtec] 10 mg PO DAILY 09/18/16 [History] Fluticasone Propionate Nasal [Flonase] 2 spr NS DAILY PRN 09/18/16 [History] Montelukast [Singulair] 10 mg PO HS 09/18/16 [History] carBAMazepine [CarBAMazepine] 200 mg PO HS 09/24/16 [History] Budesonide Neb [Pulmicort Neb] 0.5 mg PO Q6H PRN 12/25/16 [History] 3 Allergy/AdvReac Type Severity Reaction Status Date / Time No Known Allergies Allergy Verified 12/25/16 10:24 All Systems PM: A 10-system review of systems was performed and is negative for pertinent findings except as documented above in the HPI. - Constitutional Vitals: Temp Pulse Resp BP Pulse Ox 99.1 F 115 20 152/99 92 12/25/16 10:09 12/25/16 13:38 12/25/16 14:30 12/25/16 14:30 12/25/16 13:38 General appearance: Present: mild distress (conversational dyspnea, mild increased work of breathing) - Respiratory Respiratory exam: Present: accessory muscle use (dimin bs bilat), decreased breath sounds. Absent: rales, rhonchi, wheezes - Extremities Exam Extremities exam: Present: normal capillary refill (Cap refill <2.5 secs), radial pulses palpable and symmetrical Internal Med - H&P Results - Labs CBC & Chem 7: 12/25/16 10:35 12/25/16 10:35
[2016-12-25] MEDS ORDERED: Levofloxacin 750 MG/150 ML 750 MG/150 ML BAG IVPB SCH (15:00)
[2016-12-25] MEDS ORDERED: Vancomycin 1,750 MG in D5% in Water 250 ML IVPB SCH (16:00)
[2016-12-25] MEDS: Levofloxacin 750 MG/150 ML 750 MG/150 ML BAG IVPB SCH (16:15)
[2016-12-25] MEDS ORDERED: Vancomycin 2,000 MG in D5% in Water 500 ML IVPB ONE (16:30)
[2016-12-25] MEDS: Ipratropium/Albuterol Neb 3 ML IH SCH ×2 (16:44→23:03)
[2016-12-25] MEDS: methylPREDNISolone 125 MG/2 ML VIAL IVP SCH ×2 (17:53→23:53)
[2016-12-25] MEDS ORDERED: Furosemide 40 MG in 0.9 % Sodium Chloride 50 ML IVPB ONE (18:12)
[2016-12-25] MEDS ORDERED: *HR* LORazepam 2 MG/ML VIAL IVP ONE (19:51)
[2016-12-25] MEDS: CarBAMazepine 100 MG TABLET PO SCH (21:33)
[2016-12-25] MEDS: Saline Nasal Spray 44 ML BOTTLE NS SCH (21:36)
[2016-12-26] MEDS: Ipratropium/Albuterol Neb 3 ML IH SCH ×4 (04:16→22:53)
[2016-12-26 05:41] LABS: Basophils % 0.2 %; Eosinophils % 0.1 %; Hematocrit 37.9 % (35.3-44.9); Hemoglobin 11.6 g/dL (11.5-15.4); Lymphocytes # 0.7 K/mcL (0.6-4.6); Lymphocytes % 6.7 %; Mean Corpuscular HGB Conc 30.6 g/dL (31.6-35.5); Mean Corpuscular Hemoglobin 26.7 pg (28.0-33.3); Mean Corpuscular Volume 87.1 fL (83.0-100.0); Mean Platelet Volume 10.3 fL (9.4-12.4); Monocytes # 0.4 K/mcL (0.0-1.3); Monocytes % 4.1 %; Neutrophils # 9.3 K/mcL (1.6-8.9); Platelet Count 361 K/mcL (140-400); Red Blood Count 4.35 M/mcL (3.82-4.97); Red Cell Distribution Width 15.5 % (11.5-14.5); Segmented Neutrophils % 87.9 %
[2016-12-26 05:59] LABS: BUN/Creatinine Ratio 15 (6-26); Blood Urea Nitrogen 11 mg/dL (7-20); Calcium 9.7 mg/dL (8.6-10.8); Carbon Dioxide 21 mEq/L (19-29); Chloride 105 mEq/L (98-109); Glucose 135 mg/dL (70-99); Osmolality,Calculated 287 (280-300); Potassium 4.6 mEq/L (3.5-4.5); Sodium 138 mEq/L (136-145); eGFR For African Americans > 60 (> 60); eGFR For Non-African Americans > 60 (> 60)
[2016-12-26] MEDS: Vancomycin 1,750 MG in D5% in Water 500 ML IVPB SCH ×2 (06:32→19:55)
[2016-12-26] MEDS: methylPREDNISolone 125 MG/2 ML VIAL IVP SCH ×3 (06:32→23:29)
[2016-12-26] MEDS: Loratadine 10 MG TABLET PO SCH (08:25)
[2016-12-26] MEDS: Saline Nasal Spray 44 ML BOTTLE NS SCH ×2 (08:25→19:57)
[2016-12-26] MEDS: Levofloxacin 750 MG/150 ML 750 MG/150 ML BAG IVPB SCH (15:20)
--- NOTE | 2016-12-26 15:55 | Electrocardiograph Report ---
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
--- NOTE | 2016-12-26 18:28 | Internal Med Progress Note ---
Date of Encounter: 12/26/16 Time of Encounter: 11:00 - Assessment and plan (1) Morbid obesity with BMI of 40.0-44.9, adult Current Visit: Yes Status: Acute Assessment and plan: Outpatient weight loss regimen. (2) DVT prophylaxis Current Visit: No Status: Acute Assessment and plan: Encourage early ambulation. She is otherwise healthy and fully ambulatory and therefore does not require pharmacological prophylaxis. (3) Asthma with exacerbation Current Visit: Yes Status: Acute Assessment and plan: She has daily symptoms with occasional nighttime attacks consistent with intermediate persistent. She currently has a severe exacerbation with profound hypoxemia likely secondary to acute bronchitis. She was hypoxic to 82% on room air which improved with nasal cannula however she dipped in the 80s again overnight. We will treat her with IV steroids. She made significant improvement yesterday and therefore I will taper her IV steroids to 40 mg every 8 hours and will monitor closely. Qualifiers: Asthma severity: moderate persistent Qualified Code(s): J45.41 - Moderate persistent asthma with (acute) exacerbation (4) Acute hypoxemic respiratory failure Current Visit: Yes Status: Acute Assessment and plan: Oxygen by nasal cannula to maintain saturation above 92%. - Subjective Interval history: Patient presents to the hospital with chest pain and shortness of breath which she reported as severe, mid sternal occurred yesterday, associated with cough. No chest pain as 0/10, shortness of breath has significantly improved over the last 24 hours. - Constitutional Vitals: Temp Pulse Resp BP Pulse Ox 98.6 F 103 18 117/74 96 12/26/16 16:52 12/26/16 16:52 12/26/16 16:52 12/26/16 16:52 12/26/16 11:53 General appearance: Present: mild distress (conversational dyspnea, mild increased work of breathing) - Respiratory Respiratory exam: Present: CTAB. Absent: accessory muscle use, rales, rhonchi, wheezes - Cardiovascular Cardiovascular exam: Present: RRR, +S1, +S2, tachycardia. Absent: diastolic murmur, gallop, rubs, systolic murmur - GI/Abdominal GI/Abdominal exam: Present: normal bowel sounds, soft, no peritoneal signs. Absent: distended, tenderness - Extremities Exam Extremities exam: Present: warm, radial pulses palpable and symmetrical. Absent : calf tenderness, cyanotic, pedal edema - Skin Skin exam: Present: dry, intact Internal Medicine: Result - Labs CBC & Chem 7: 12/26/16 05:02 12/26/16 05:01 Labs: Short CBC 12/26/16 Range/Units 05:02 WBC 10.5 (4.3-11.1) K/mcL Hgb 11.6 (11.5-15.4) g/dL Hct 37.9 (35.3-44.9) % Plt Count 361 (140-400) K/mcL Neutrophils # 9.3 H (1.6-8.9) K/mcL BMP 12/26/16 05:01 Sodium 138 Potassium 4.6 H Chloride 105 Carbon Dioxide 21 BUN 11 Creatinine 0.74 Glucose 135 H Calcium 9.7 - VTE Documentation of Mechanical Device: Intermittent pneumatic compression device Consult Discharge Plan - Plan Referrals: Alison Cruz CNP [Primary Care Provider] - 12/31/16 1:15 pm
[2016-12-26] MEDS: CarBAMazepine 100 MG TABLET PO SCH (19:56)
[2016-12-27] MEDS: Ipratropium/Albuterol Neb 3 ML IH SCH ×2 (04:37→11:40)
[2016-12-27 06:00] LABS: Basophils % 0.3 %; Hematocrit 36.4 % (35.3-44.9); Hemoglobin 11.4 g/dL (11.5-15.4); Immature Granulocytes % 0.7 % (0-4); Lymphocytes # 1.5 K/mcL (0.6-4.6); Lymphocytes % 16.6 %; Mean Corpuscular HGB Conc 31.3 g/dL (31.6-35.5); Mean Corpuscular Hemoglobin 27.1 pg (28.0-33.3); Mean Corpuscular Volume 86.5 fL (83.0-100.0); Monocytes # 0.6 K/mcL (0.0-1.3); Monocytes % 6.2 %; Neutrophils # 6.7 K/mcL (1.6-8.9); Platelet Count 349 K/mcL (140-400); Red Blood Count 4.21 M/mcL (3.82-4.97); Red Cell Distribution Width 15.7 % (11.5-14.5); Segmented Neutrophils % 76.2 %
[2016-12-27 07:13] LABS: BUN/Creatinine Ratio 24 (6-26); Blood Urea Nitrogen 19 mg/dL (7-20); Calcium 9.5 mg/dL (8.6-10.8); Carbon Dioxide 24 mEq/L (19-29); Chloride 105 mEq/L (98-109); Glucose 121 mg/dL (70-99); Osmolality,Calculated 294 (280-300); Potassium 3.8 mEq/L (3.5-4.5); Sodium 140 mEq/L (136-145); eGFR For African Americans > 60 (> 60); eGFR For Non-African Americans > 60 (> 60)
[2016-12-27] MEDS: methylPREDNISolone 125 MG/2 ML VIAL IVP SCH (07:42)
[2016-12-27] MEDS: Loratadine 10 MG TABLET PO SCH (07:43)
[2016-12-27] MEDS: Saline Nasal Spray 44 ML BOTTLE NS SCH (07:43)
[2016-12-27 07:57] VITALS: BP 116/69
--- NOTE | 2016-12-27 10:18 | Discharge Summary ---
Date of Encounter: 12/27/16 Time of Encounter: 10:11 - Discharge Diagnosis (1) Acute hypoxemic respiratory failure Priority: Primary Status: Acute (2) Acute bronchitis Priority: Primary Status: Suspected Qualifiers: Bronchitis organism: Haemophilus influenzae Qualified Code(s): J20.1 - Acute bronchitis due to Hemophilus influenzae (3) Asthma exacerbation Priority: Primary Status: Acute (4) Moderate persistent asthma Priority: Secondary Status: Acute Qualifiers: Qualified Code(s): J45.41 - Moderate persistent asthma with (acute) exacerbation (5) Seizure disorder Priority: Secondary Status: Chronic - Discharge Medications Prescriptions: Budesonide/Formoterol 80/4.5 [Symbicort 80/4.5] 1 puff IH BID #1 hfa.aer.ad levoFLOXacin [Levofloxacin] 500 mg PO DAILY #3 tablet predniSONE [PredniSONE] 40 mg PO BIDWM #18 tablet Home Medications: Albuterol Sulfate [Ventolin Hfa] 2 puff IH Q4H PRN 09/18/16 [History] Cetirizine HCl [Zyrtec] 10 mg PO DAILY 09/18/16 [History] Fluticasone Propionate Nasal [Flonase] 2 spr NS DAILY PRN 09/18/16 [History] Montelukast [Singulair] 10 mg PO HS 09/18/16 [History] carBAMazepine [CarBAMazepine] 200 mg PO HS 09/24/16 [History] Budesonide/Formoterol 80/4.5 [Symbicort 80/4.5] 1 puff IH BID #1 hfa.aer.ad [Rx] levoFLOXacin [Levofloxacin] 500 mg PO DAILY #3 tablet 12/27/16 [Rx] predniSONE [PredniSONE] 40 mg PO BIDWM #18 tablet 12/27/16 [Rx] Allergies/Adverse Reactions: 3 Allergy/AdvReac Type Severity Reaction Status Date / Time No Known Allergies Allergy Verified 12/25/16 10:24 Procedures/tests Complete & Pending: Procedures Performed prior 72 hours Category Date Time Status EV limited echocardiogram Routine Y 12/25/16 18:13 Completed Date of admission: 12/25/16 15:35 Primary care physician: Alison Cruz CNP - Patient Status Disposition: Home, Self-Care Condition: Good Overall status at discharge: patient is back to baseline - Discharge Instructions Instructions: Moderate and Severe Persistent Asthma (DC), Moderate and Severe Persistent Asthma (GEN) Follow Up With: Alison Cruz CNP [Primary Care Provider] - 12/31/16 1:15 pm Lainey Vanegas MD [Partnered Physician] - Additional Instructions: Need to f/u with Pulmonary Dr. Vanegas for further evaluation on your worsening Asthma Need pulmonary function tests - Diet and Activity Activity: increase activity as tolerated Diet: advance to your usual diet Hospital course: 36 yo female with a hx of asthma usually under good control with periodic use of albuterol. She had sinus surgery in Apr 2016 for polyps. Was doing well when yesterday she developed severe cough, prod of yellow sputum and wheezing. No F/C. She then dev ant chest and back pain due to heavy hard coughing, prod of yellow, often thick sputum. She was admitted September 2016 for similar sx of asthma exacerbation, with sputum pos MRSA. She was tx with Levaquin and Vanco at that time, dc home on doxycycline. Pt is a nonsmoker, and has no occupational exposures. No N/V/D. She has 3 dogs at home, none new. No new exposures. She presented to ER with wheezing and increased sob. LAbs showed a WBC of 15, Lactic elevaetd at 3.3. CT thorax was negative for acute process. She was given IVF, blood cx performed, nebs and IV solumedrol. Admitted for acute asthma exacerbation. Pt was admitted into step down unit due to her severe SOB with severe Asthma exacerbation. Her asthma exacerbation might triggered by acute bronchitis and seasonal allergies. She was started on high IV steroids and duonebs. She did required high flow O2 at 6 lit initially. She was also trated with empirical abx Levofloxacin and Vancomycin. Her symptoms started improving slowly, now she is off the supplemental O2 since y/d, breathing comfortably on RA now. So will send her home today in stable condition with PO Abx Levofloxacin for 3 more days and Tapering PO steroids. Also noticed she does have moderate persistent asthma.. does need maintainence therapy with INH steroids + LAB.. so placed her on Symbicort at low dose for now.. Due to her frequent flare ups, requested the pt to f/u with Pulmonary for further eval and a baseline PFT when pt acute symptoms improved. - Time Spent with Patient Total time spent providing and/or coordinating discharge services: - Constitutional Vitals: Temp Pulse Resp BP Pulse Ox 98.0 F 90 18 116/69 96 12/27/16 07:51 12/27/16 07:55 12/27/16 07:51 12/27/16 07:51 12/27/16 07:51 General appearance: Present: A&O X 3, pleasant, no acute distress, answers questions appropriately - Head Head exam: Present: atraumatic, normal inspection - Respiratory Respiratory exam: Present: decreased breath sounds, wheezes (mild to moderate). Absent: rales, respiratory distress, rhonchi - Cardiovascular Cardiovascular exam: Present: RRR, +S1, +S2. Absent: diastolic murmur, gallop, rubs, systolic murmur - GI/Abdominal GI/Abdominal exam: Present: normal bowel sounds, soft, no peritoneal signs. Absent: distended, tenderness - Extremities Exam Extremities exam: Absent: calf tenderness, pedal edema, tenderness - Neurological Exam Neurological exam: Present: alert, oriented X3 - Psychiatric Psychiatric exam: Present: normal affect, normal mood - VTE Documentation of Mechanical Device: Intermittent pneumatic compression device
[2016-12-27] MEDS ORDERED: Aminoglycoside Consult 1 EACH MC ONE (12:54)
== END 2016-12-27 12:55 | disposition home or self-care (01) | DRG 720 ==
LOC: EMEROO 10:07 → 2NNU 10:07 → SUATTDRO 15:35
PROVIDERS: ADMIT Internal Medicine; ATTEND Internal Medicine